=== PATIENT | male | born 1975 | race Caucasian/White ===

== ENCOUNTER 2017-08-02 09:40 | Emergency (ER) | payer OTHER, SELFPAY ==
[2017-08-02 10:09] VITALS: BP 134/81; PULSE 82; RESP 20; TEMP 36.7; O2SAT 99; BMI 25.7
--- NOTE | 2017-08-02 10:15 | XR_ITS ---
XR chest 2V HISTORY: ITS.REASON: HAVING SURGERY, REQUIRES CHEST XRAY ORDERING PHYSICIAN: ZAINAB Rome PATIENT AGE: 42 years COMPARISON: None available FINDINGS: The cardiomediastinal silhouette and pulmonary vascularity are within normal limits. The lungs are clear without infiltrates, suspicious nodules, or pleural effusions. In the infrahilar region on the lateral view there is a nodular opacity which measures 2.6 x 1.8 cm. While this could be due to summation artifact, pulmonary nodule cannot be excluded therefore, CT chest recommended with contrast. No acute bony abnormalities. IMPRESSION: Possible infrahilar nodule on the lateral view. Suggest CT chest with contrast for further evaluation
[2017-08-02 10:45] LABS: Hematocrit 48.7 % (42.0-52.0); Hemoglobin 16.5 g/dL (14.1-18.0); Mean Corpuscular Hemoglobin 29.5 pg (27.0-31.2); Mean Corpuscular Volume 86.8 fl (80-94); Mean Platelet Volume 7.5 fl (7.4-10.4); Platelet Count 243 K/mm3 (142-424); Red Cell Distribution Width 12.6 % (11.5-17.5); White Blood Count 5.1 K/mm3 (4.8-10.8)
[2017-08-02 10:46] LABS: Alanine Aminotransferase 48 U/L (12-78); Albumin Level 4.1 gm/dL (3.4-5.0); Alkaline Phosphatase 61 U/L (46-116); Anion Gap 12.4 mEq/L (5-15); Aspartate Amino Transferase 22 U/L (15-37); Basophils % 0.4 % (0.1-2.0); Bilirubin,Total 0.8 mg/dL (0.2-1.0); Blood Urea Nitrogen 15 mg/dL (7-18); Calcium 9.2 mg/dL (8.5-10.1); Carbon Dioxide 28 mmol/L (21.0-32.0); Chloride 104 mmol/L (98-107); Creatinine Clearance Estimated 120 mL/min (0-300); Creatinine,Serum 0.99 mg/dL (0.70-1.30); Eosinophils % 1.6 % (0.1-12.0); Estimated Glomerular Filt Rate 83 ml/min (>60); GFR (African American) 101 ML/MIN (>60); Globulin 4.1 gm/dl (1.3-3.2); Glucose 97 mg/dL (74-106); Lymphocytes # 1.5 K/mm3 (0.7-4.5); Lymphocytes % 32.3 K/mm3 (10-50); Neutrophils # 2.8 K/mm3 (1.8-7.8); Neutrophils % 54.7 % (37.0-80.0); Potassium 4.4 mmoL/L (3.5-5.1); Sodium 140 mmol/L (136-145); Total Protein,Serum 8.2 gm/dL (6.4-8.2)
[2017-08-02 10:47] LABS: Eosinophils # 0.1 K/mm3 (0.0-0.4); Monocytes # 0.6 K/mm3 (0.1-1.0)
--- NOTE | 2017-08-02 10:47 | HMH.EDUTC ---
[facility] [place] Disposition Clinical Impression: Pre-op testing, Hemophilia Right knee pain Qualifiers: Chronicity: chronic Qualified Code(s): M25.561 - Pain in right knee; G89.29 - Other chronic pain Disposition: Home, Self-Care Condition on Discharge: Good Additional Instructions: CBC, CMP, PT/INR and CXR, EKG will be sent to orthopedist. Time of Disposition: 10:50 Medical Decision Making - Medical Records Medical records reviewed: Yes: I reviewed the patient's medical records. Vital Signs: 08/02/17 10:09 Temperature 98.1 F Temperature Source Oral Pulse Rate [Right Brachial] 82 Respiratory Rate 20 Blood Pressure [Right Arm] 134/81 Blood Pressure Mean [Right Arm] 98 Blood Pressure Source [Right Arm] Automatic Cuff Blood Pressure Position [Right Arm] Sitting 02 Sat by Pulse Oximetry 99 Oxygen Delivery Method Room Air Orders (Tests/Meds): ORDERS Category Date Time Status Chest XR 2 view (NOT portable) [XR chest 2V] Stat Exams 08/02/17 10:15 Taken Complete Blood Count Auto Diff Stat Lab 08/02/17 10:25 Received Comprehensive Metabolic Panel Stat Lab 08/02/17 10:25 Received PT INR [Prothrombin Time INR] Stat Lab 08/02/17 10:25 Received ECG Request by /Patti Stat Y 08/02/17 10:15 Stop Benjamin - Tanvir Inquiry Pt receiving controlled substance: No [facility] [place] HPI - General Stated complaint: Pre Op Testing Time Seen by Provider: 08/02/17 10:15 Mode of Arrival: Ambulatory Source of Information: Patient Limitations: No Limitations Description of Symptoms (Recalled from Triage Doc. by RN): PT IS REQUESTING A CHEST XRAY, EKG, CBC, AND CHEM 14 HEENT Symptoms (Recalled from RN notes): No Resp Symptoms (Recalled from RN notes): No Skin Symptoms (Recalled from RN notes): No MS Symptoms (Recalled from RN notes): No Functional Status (Recalled from RN notes): N/A - History of Present Illness Provider Complaint: Patient needs pre op testing for right knee replacement. Leaves today to go to [place] for surgery 08/05/2017. Recently moved here but is returning to [place] for the surgery because his physician is familiar with him. Has history of hemophilia. - Related Data Allergies Allergy/AdvReac Type Severity Reaction Status Date / Time No Known Allergies Allergy Verified 08/02/17 10:14 - Worker's Comp Is this a Worker's Comp case?: No H History I have reviewed the patient's past medical history: Yes Medical History: Denies:: Cancer, Diabetes Mellitus Type 1, Diabetes Mellitus Type 2, MRSA Comment: Hemophilia Amputation: No Fractures: No - *Social History Smoking Status: Never smoker Alcohol Intake: never - Psychiatric History Expresses thoughts of harming self/others: None Suicide Plan Description: No Plan ROS Obtained: Yes All systems reviewed & no additional complaints - Musculoskeletal Musculoskeletal: Reports joint pain Physical Exam - General General appearance: alert, in no apparent distress - Head Head exam: atraumatic, normocephalic, normal inspection - Eye Eye exam: Present: normal appearance, PERRL, EOMI - ENT ENT exam: Present: normal exam, normal oropharynx, mucous membranes moist, TM's normal bilaterally, normal external ear exam - Neck Neck exam: Present: normal inspection, full ROM, trachea midline. Absent: meningismus, lymphadenopathy - Chest Chest inspection: Present: normal inspection, symmetric chest wall rise. Absent: tenderness - Respiratory Respiratory exam: Present: normal lung sounds bilaterally. Absent: respiratory distress - Cardiovascular Cardiovascular exam: Present: regular rate, normal rhythm. Absent: JVD - Abdominal Exam Abdominal exam: Present: soft, normal bowel sounds. Absent: distention, tenderness, guarding - Extremities Exam Extremities exam: Present: normal inspection, tenderness, normal capillary refill, joint swelling. Absent: calf tenderness - Back Exam Back exam: Present: normal inspection. Absent: tenderness
[2017-08-02 10:48] LABS: INR 0.94 (0.9-1.1); Prothrombin Time 10.2 seconds (9.4-11.8)
--- NOTE | 2017-08-02 10:50 | ED_ITS ---
[facility] [place] Disposition Clinical Impression: Pre-op testing, Hemophilia Right knee pain Qualifiers: Chronicity: chronic Qualified Code(s): M25.561 - Pain in right knee; G89.29 - Other chronic pain Disposition: Home, Self-Care Condition on Discharge: Good Additional Instructions: CBC, CMP, PT/INR and CXR, EKG will be sent to orthopedist. Time of Disposition: 10:50 Medical Decision Making - Medical Records Medical records reviewed: Yes: I reviewed the patient's medical records. Vital Signs: 08/02/17 10:09 Temperature 98.1 F Temperature Source Oral Pulse Rate [Right Brachial] 82 Respiratory Rate 20 Blood Pressure [Right Arm] 134/81 Blood Pressure Mean [Right Arm] 98 Blood Pressure Source [Right Arm] Automatic Cuff Blood Pressure Position [Right Arm] Sitting 02 Sat by Pulse Oximetry 99 Oxygen Delivery Method Room Air Orders (Tests/Meds): ORDERS Category Date Time Status Chest XR 2 view (NOT portable) [XR chest 2V] Stat Exams 08/02/17 10:15 Taken Complete Blood Count Auto Diff Stat Lab 08/02/17 10:25 Received Comprehensive Metabolic Panel Stat Lab 08/02/17 10:25 Received PT INR [Prothrombin Time INR] Stat Lab 08/02/17 10:25 Received ECG Request by /Patti Stat Y 08/02/17 10:15 Stop Benjamin - Tanvir Inquiry Pt receiving controlled substance: No [facility] [place] HPI - General Stated complaint: Pre Op Testing Time Seen by Provider: 08/02/17 10:15 Mode of Arrival: Ambulatory Source of Information: Patient Limitations: No Limitations Description of Symptoms (Recalled from Triage Doc. by RN): PT IS REQUESTING A CHEST XRAY, EKG, CBC, AND CHEM 14 HEENT Symptoms (Recalled from RN notes): No Resp Symptoms (Recalled from RN notes): No Skin Symptoms (Recalled from RN notes): No MS Symptoms (Recalled from RN notes): No Functional Status (Recalled from RN notes): N/A - History of Present Illness Provider Complaint: Patient needs pre op testing for right knee replacement. Leaves today to go to [place] for surgery 08/05/2017. Recently moved here but is returning to [place] for the surgery because his physician is familiar with him. Has history of hemophilia. - Related Data Allergies Allergy/AdvReac Type Severity Reaction Status Date / Time No Known Allergies Allergy Verified 08/02/17 10:14 - Worker's Comp Is this a Worker's Comp case?: No H History I have reviewed the patient's past medical history: Yes Medical History: Denies:: Cancer, Diabetes Mellitus Type 1, Diabetes Mellitus Type 2, MRSA Comment: Hemophilia Amputation: No Fractures: No - *Social History Smoking Status: Never smoker Alcohol Intake: never - Psychiatric History Expresses thoughts of harming self/others: None Suicide Plan Description: No Plan ROS Obtained: Yes All systems reviewed & no additional complaints - Musculoskeletal Musculoskeletal: Reports joint pain Physical Exam - General General appearance: alert, in no apparent distress - Head Head exam: atraumatic, normocephalic, normal inspection - Eye Eye exam: Present: normal appearance, PERRL, EOMI - ENT ENT exam: Present: normal exam, normal oropharynx, mucous membranes moist, TM's normal bilaterally, normal external ear exam - Neck Neck exam: Present: normal inspection, full ROM, trachea midline. Absent: meningis
[2017-08-02 10:59] VITALS: BP 134/81; PULSE 82; RESP 20; TEMP 36.7
== END 2017-08-02 10:59 | disposition home or self-care (01) ==
PROVIDERS: Emergency Provider Physician Assistant
DX: Z01.818 Encounter for other preprocedural examination (principal); M25.561 Pain in right knee; D66 Hereditary factor VIII deficiency; G89.29 Other chronic pain
CPT/HCPCS: 36415; 71046; 80053; 85025; 85610; 93005; 93041; 99203

== ENCOUNTER → 2017-11-21 15:24 | Outpatient (CLI) | payer BC, SELFPAY ==
--- NOTE | 2017-11-21 15:26 | XR_ITS ---
XR foot wt bearing LT 3V HISTORY: ITS.REASON: Foot and Ankle Pain ORDERING PHYSICIAN: Lupe Gibbs DPM PATIENT AGE: 42 years COMPARISON: None FINDINGS: No fracture or dislocation. No lytic or blastic change. There is normal mineralization.. The joint spaces are well-preserved. No significant degenerative/arthritic changes. No erosive changes evident. IMPRESSION: Negative, no acute finding
--- NOTE | 2017-11-21 15:26 | XR_ITS ---
XR ankle wt bearing LT min 3V HISTORY: ITS.REASON: pain ORDERING PHYSICIAN: Lupe Gibbs DPM PATIENT AGE: 42 years Comparison: None FINDINGS: No fracture or dislocation. No lytic or blastic change. There is normal mineralization.. The joint spaces are well-preserved. No significant degenerative/arthritic changes. No erosive changes evident. Unremarkable. Talar dome IMPRESSION: Negative ankle, no acute finding
--- NOTE | 2017-11-21 15:26 | XR_ITS ---
XR foot wt bearing RT 3V HISTORY: ITS.REASON: Foot and Ankle Pain ORDERING PHYSICIAN: Lupe Gibbs DPM PATIENT AGE: 42 years COMPARISON: None FINDINGS: No fracture or dislocation. No lytic or blastic change. There is normal mineralization.. The joint spaces are well-preserved. No significant degenerative/arthritic changes. No erosive changes evident. IMPRESSION: Negative, no acute finding
--- NOTE | 2017-11-21 15:26 | XR_ITS ---
XR ankle wt bearing RT min 3V HISTORY: ITS.REASON: pain ORDERING PHYSICIAN: Lupe Gibbs DPM PATIENT AGE: 42 years Comparison: None FINDINGS: No fracture or dislocation. No lytic or blastic change. There is normal mineralization.. The joint spaces are well-preserved. No significant degenerative/arthritic changes. No erosive changes evident. The talar dome has an unremarkable appearance IMPRESSION: Negative ankle, no acute finding
== END ==
PROVIDERS: Visit Provider Podiatrist
DX: M79.671 Pain in right foot (principal); M79.672 Pain in left foot; M25.572 Pain in left ankle and joints of left foot; M25.571 Pain in right ankle and joints of right foot
CPT/HCPCS: 73610; 73630

== ENCOUNTER 2017-12-19 14:00 | Outpatient (RCR) | payer BC, SELFPAY | END 2017-12-19 14:01 | disposition home or self-care (01) | LOC: PT 14:00 | DX: M24.661 Ankylosis, right knee (principal); Z96.651 Presence of right artificial knee joint | CPT/HCPCS: 97010; 97014; 97016; 97110; 97140; 97164; G0283 ==

== ENCOUNTER → 2018-01-29 15:12 | Outpatient (CLI) | payer BC, SELFPAY ==
[2018-01-29 15:31] LABS: Basophils % 0.3 % (0.1-2.0); Eosinophils # 0.2 K/mm3 (0.0-0.4); Eosinophils % 3.7 % (0.1-12.0); Hematocrit 47.1 % (42.0-52.0); Hemoglobin 16.1 g/dL (14.1-18.0); Lymphocytes # 1.4 K/mm3 (0.7-4.5); Lymphocytes % 23.9 K/mm3 (10-50); Mean Corpuscular HGB Conc 34.2 g/dL (31.8-35.4); Mean Corpuscular Hemoglobin 29.5 pg (27.0-31.2); Mean Corpuscular Volume 86.3 fl (80-94); Mean Platelet Volume 6.5 fl (7.4-10.4); Monocytes # 0.4 K/mm3 (0.1-1.0); Monocytes % 6.2 % (1.7-9.3); Neutrophils # 3.9 K/mm3 (1.8-7.8); Neutrophils % 65.8 % (37.0-80.0); Platelet Count 275 K/mm3 (142-424); Red Blood Count 5.46 M/mm3 (4.60-6.20); White Blood Count 5.9 K/mm3 (4.8-10.8)
[2018-01-29 18:41] LABS: Alanine Aminotransferase 39 U/L (12-78); Albumin Level 4.2 gm/dL (3.4-5.0); Albumin/Globulin Ratio 1.1 (1.1-1.8); Alkaline Phosphatase 63 U/L (46-116); Anion Gap 11.6 mEq/L (5-15); Aspartate Amino Transferase 18 U/L (15-37); Bilirubin,Total 0.5 mg/dL (0.2-1.0); Blood Urea Nitrogen 13 mg/dL (7-18); Calcium 9.1 mg/dL (8.5-10.1); Carbon Dioxide 32 mmol/L (21.0-32.0); Chloride 104 mmol/L (98-107); Creatinine,Serum 1.03 mg/dL (0.70-1.30); Estimated Glomerular Filt Rate 80 ml/min (>60); GFR (African American) 96 ML/MIN (>60); Globulin 3.8 gm/dl (1.3-3.2); Glucose 96 mg/dL (74-106); Potassium 4.6 mmoL/L (3.5-5.1); Sodium 143 mmol/L (136-145)
== END ==
PROVIDERS: Visit Provider Internal Medicine Gastroenterology
DX: B18.2 Chronic viral hepatitis C (principal)
CPT/HCPCS: 36415; 80053; 85025; 87522

== ENCOUNTER → 2019-06-17 07:42 | Outpatient (CLI) | payer BC, SELFPAY ==
--- NOTE | 2019-06-17 07:44 | US_ITS ---
PROCEDURE: US ABDOMEN LIMITED CLINICAL INDICATION: RUQ PAIN COMPARISON: No exams were available for comparison FINDINGS: PANCREAS: Unremarkable. No obvious mass or abnormal fluid collection. No ductal dilatation LIVER: No focal liver lesions demonstrated. Homogeneous echogenicity. No intrahepatic biliary ductal dilatation evident. There is appropriate direction of blood flow within a non dilated portal vein RIGHT KIDNEY: Unremarkable. Normal size and echogenicity. No hydronephrosis GALLBLADDER: There is layering of numerous small echogenic shadowing foci along the gallbladder. There is no gallbladder wall thickening or pericholecystic fluid. Common bile duct is normal measuring 3.6 millimeters. IMPRESSION: Uncomplicated cholelithiasis. Dictated by: Harry Nassar 06/17/2019 11:57 Electronically signed by Harry Nassar in [place] 06/17/2019 11:57
== END ==
PROVIDERS: PCP Nurse Practitioner Family; Visit Provider Internal Medicine Adolescent Medicine
DX: R10.11 Right upper quadrant pain (principal)
CPT/HCPCS: 76705

== ENCOUNTER → 2020-06-22 11:13 | Outpatient (CLI) | payer BC, SELFPAY ==
[2020-06-22 11:54] LABS: Basophils % 0.4 % (0.1-2.0); Eosinophils # 0.1 K/mm3 (0.0-0.4); Eosinophils % 1.7 % (0.1-12.0); Hematocrit 53.2 % (42.0-52.0); Hemoglobin 17.8 g/dL (14.1-18.0); Lymphocytes # 1.5 K/mm3 (0.7-4.5); Lymphocytes % 31.6 % (10-50); Mean Corpuscular HGB Conc 33.4 g/dL (31.8-35.4); Mean Corpuscular Hemoglobin 29.5 pg (27.0-31.2); Mean Corpuscular Volume 88.3 fl (80-94); Mean Platelet Volume 7.3 fl (7.4-10.4); Monocytes # 0.5 K/mm3 (0.1-1.0); Monocytes % 10.6 % (1.7-9.3); Neutrophils # 2.6 K/mm3 (1.8-7.8); Neutrophils % 55.6 % (37.0-80.0); Platelet Count 289 K/mm3 (142-424); Red Blood Count 6.02 M/mm3 (4.60-6.20); Red Cell Distribution Width 13.4 % (11.5-17.5); White Blood Count 4.7 K/mm3 (4.8-10.8)
[2020-06-22 12:48] LABS: Chloride 103 mmol/L (98-107); Potassium 4.8 mmoL/L (3.5-5.1); Sodium 139 mmol/L (136-145)
[2020-06-22 12:50] LABS: Alanine Aminotransferase 43 U/L (12-78); Aspartate Amino Transferase 37 U/L (17-59); Blood Urea Nitrogen 12 mg/dl (9-20); Estimated Glomerular Filt Rate 81 ml/min (>60); GFR (African American) 98 ML/MIN (>60)
[2020-06-22 12:51] LABS: Albumin Level 4.7 g/dl (3.5-5.0); Albumin/Globulin Ratio 1.3 (1.1-1.8); Alkaline Phosphatase 53 U/L (38-126); Anion Gap 11.8 mEq/L (5-15); Bilirubin,Total 0.8 mg/dl (0.2-1.3); Calcium 9.8 mg/dl (8.4-10.2); Carbon Dioxide 29 mmol/L (22.0-30.0); Globulin 3.7 g/dL (1.3-3.2); Glucose 94 mg/dl (74-100); Iron 118 ug/dL (49-181); Total Protein,Serum 8.4 g/dl (6.3-8.2)
[2020-06-22 13:00] LABS: Total Iron Binding Capacity 354 ug/dL (261-462)
[2020-06-22 13:26] LABS: Ferritin 65.4 ng/ml (17.9-464)
[2020-06-27 18:12] LABS: Factor VIII Activity <1 % (56-140)
[2020-07-01 01:56] LABS: Miscellaneous Test SEE LABCORP REPORT
== END ==
PROVIDERS: Visit Provider Internal Medicine Hematology & Oncology
DX: D66 Hereditary factor VIII deficiency (principal)
CPT/HCPCS: 80053; 82728; 83540; 83550; 85025; 85240; 87522

== ENCOUNTER → 2021-04-18 11:28 | Outpatient (CLI) | payer BC, SELFPAY ==
[2021-04-18 12:33] LABS: Coronavirus 19 IgG Antibody Negative (Negative); Coronavirus 19 IgM Antibody Negative (Negative)
== END ==
PROVIDERS: Visit Provider Family Medicine
DX: Z20.822 Contact with and (suspected) exposure to COVID-19 (principal)
CPT/HCPCS: 36415; 86328

== ENCOUNTER 2022-02-04 14:54 | Emergency (ER) | payer BC, SELFPAY ==
[2022-02-04 15:10] VITALS: BP 138/90; PULSE 83; RESP 18; TEMP 36.6; O2SAT 98; BMI 26.4
[2022-02-04 15:16] VITALS: BP 138/90; PULSE 83; RESP 18; TEMP 36.6; O2SAT 98
--- NOTE | 2022-02-04 15:21 | HMH.EDUTC ---
[facility] [place] Disposition Clinical Impression: Encounter for laboratory testing for COVID-19 virus Disposition: Home, Self-Care Condition on Discharge: Good Instructions: DI for Viral Syndrome, DI for COVID-19 (Suspected or Confirmed ), Preventing the Spread of Coronavirus Discharge Instructions Additional Instructions: *Monitor Temp, Over the counter Motrin or Tylenol as directed/as needed Tylenol every 4 hours and Motrin every 6 hours (as long as your family doctor has told you that you can take it) for fever or pain. and straight to ER if unable to lower temp less than 101.0 after medication given *Warm salt water gargles may help to soothe the throat *Throat Lozenges *Warm fluids like tea with honey may help to soothe the throat *Sleep elevated *Humidifier/Vaporizer Follow up IMMEDIATELY for new or worsening symptoms or no Noticeable improvement over the next 48-72 hours. 911 for difficulty breathing or swallowing You were tested for today for COVID19 your test result should be back in the next 24-48 hours, you check your results on the [facility] My Health Portal Make sure to take your Vitamins Vit. C Vit D and Zinc if you can take them Referrals: Mario Arzate MD [Primary Care Provider] - As needed Forms: Work/School Release Time of Disposition: 15:27 Medical Decision Making - Tanvir Inquiry Pt receiving controlled substance: No Tanvir was queried for this patient: No Vital Signs: 02/04/22 15:10 02/04/22 15:16 Temperature 97.9 F 97.9 F Temperature Source Oral Pulse Rate 83 Pulse Rate [Right Brachial] 83 Respiratory Rate 18 18 Blood Pressure 138/90 Blood Pressure [Right Arm] 138/90 Blood Pressure Mean [Right Arm] 106 Blood Pressure Source [Right Arm] Automatic Cuff Blood Pressure Position [Right Arm] Sitting 02 Sat by Pulse Oximetry 98 Oxygen Delivery Method Room Air Orders (Tests/Meds): ORDERS Category Date Time Status Covid-19 Nasal PCR ([facility]) Routine Lab 02/04/22 15:06 Ordered [facility] [place] HPI - General Stated complaint: wants covid test Time Seen by Provider: 02/04/22 15:22 Mode of Arrival: Ambulatory Source of Information: Patient Limitations: No Limitations Description of Symptoms (Recalled from Triage Doc. by RN): PATIENT C/O FEVER, BODY ACHES, AND HEADACHE X 4 DAYS HEENT Symptoms (Recalled from RN notes): Yes Resp Symptoms (Recalled from RN notes): No Skin Symptoms (Recalled from RN notes): No MS Symptoms (Recalled from RN notes): No Functional Status (Recalled from RN notes): WNL - History of Present Illness Provider Complaint: Patient states that he hasnt felt well for the 4 days States that he has been having headache, bodyaches and chills States that family member tested positive with home test and he thinks he may have had it too now - Related Data Home Medications Medication Instructions Recorded Confirmed antihemophil FVIII,full length IV 28 Days #[id number] 11/26/17 3,000 (+/-) unit IV solution tramadol 50 mg tablet PO 10 Days #40 11/26/17 Allergies Allergy/AdvReac Type Severity Reaction Status Date / Time No Known Allergies Allergy Verified 01/06/18 18:26 - Worker's Comp Is this a Worker's Comp case?: No [facility] History - Hepatitis A Screen Attestation statement:: This patient has been screened for Hepatitis A risk factors. I have reviewed the patient's past medical history: Yes Medical History: Denies:: Cancer, Diabetes Mellitus Type 1, Diabetes Mellitus Type 2, MRSA Comment: Hemophilia Laterality Cases: Right: Arthroscopy Knee Amputation: No Fractures: No - Social History Smoking Status: Never smoker # Packs/Day (cigarettes): 0 #Yrs smoked (if former smoker): 0 Alcohol Intake: never Alcohol Intake Frequency:: holidays/special occasions only Occupational Status: other Family Hx:: No significant family history, Non-contributory ROS Obtained: Yes All systems reviewed & no additional complaints, Yes Systems reviewed as appropriate & n
== END 2022-02-04 15:35 | disposition home or self-care (01) ==
PROVIDERS: Emergency Provider Nurse Practitioner; PCP Family Medicine
DX: R51.9 Headache, unspecified (principal); Z20.822 Contact with and (suspected) exposure to COVID-19
CPT/HCPCS: 99212; C9803; G0463; U0003; U0005

== ENCOUNTER → 2022-10-30 08:43 | Outpatient (CLI) | payer BC, SELFPAY ==
--- NOTE | 2022-10-30 08:54 | US_ITS ---
FINAL REPORT CLINICAL HISTORY: H/O HEPATITIS C COMPARISON: None FINDINGS: Sonographic images of the right upper quadrant were obtained. The pancreas is partially obscured.The liver has an unremarkable appearance. There are multiple gallstones measuring less than 1 cm without evidence of acute gallbladder disease. There is no evidence of biliary ductal dilatation.The common duct measures 4mm. Limited images of the right kidney are unremarkable. IMPRESSION: No evidence of liver mass or cirrhosis. Uncomplicated cholelithiasis. Reviewed, Interpreted and Dictated by Romulo Tillman MD Transcribed by Kristina Solis Authenticated and [facility]
[2022-10-30 09:04] LABS: Basophils % 0.5 % (0.1-2.0); Eosinophils # 0.1 K/mm3 (0.0-0.4); Eosinophils % 2.3 % (0.1-12.0); Hematocrit 40.5 % (42.0-52.0); Lymphocytes # 2.2 K/mm3 (0.7-4.5); Lymphocytes % 36.6 % (10-50); Mean Corpuscular Volume 75.1 fl (80-94); Mean Platelet Volume 6.9 fl (7.4-10.4); Monocytes # 0.6 K/mm3 (0.1-1.0); Monocytes % 9.8 % (1.7-9.3); Neutrophils % 50.8 % (37.0-80.0); Platelet Count 372 K/mm3 (142-424); Red Cell Distribution Width 14.4 % (11.5-17.5); White Blood Count 5.9 K/mm3 (4.8-10.8)
[2022-10-30 09:24] LABS: INR 0.95 (0.9-1.1); Prothrombin Time 10.3 seconds (10.1-12.5)
[2022-10-30 09:37] LABS: Alanine Aminotransferase 45 U/L (12-78); Albumin Level 4.4 g/dl (3.5-5.0); Albumin/Globulin Ratio 1.3 (1.1-1.8); Alkaline Phosphatase 60 U/L (38-126); Anion Gap 17.5 mEq/L (5-15); Aspartate Amino Transferase 46 U/L (17-59); Bilirubin,Total 0.3 mg/dl (0.2-1.3); Blood Urea Nitrogen 14 mg/dl (9-20); Carbon Dioxide 28 mmol/L (22.0-30.0); Chloride 99 mmol/L (98-107); Estimated Glomerular Filt Rate 80 ml/min (>60); GFR (African American) 97 ML/MIN (>60); Globulin 3.4 g/dL (1.3-3.2); Glucose 84 mg/dl (74-100); Potassium 4.5 mmoL/L (3.5-5.1); Sodium 140 mmol/L (136-145); Total Protein,Serum 7.8 g/dl (6.3-8.2)
== END ==
PROVIDERS: PCP Family Medicine; Visit Provider Physician Assistant
DX: Z86.19 Personal history of other infectious and parasitic diseases (principal)
CPT/HCPCS: 36415; 76705; 80053; 85025; 85610; 87522

== ENCOUNTER 2024-04-28 13:07 | Outpatient (POV) | payer BC, SELFPAY ==
--- NOTE | 2024-04-28 13:51 | A.OFFVIS_ITS ---
HPI Data of Consult Patient: new to practice Consult date: 04/28/24 Requesting Physician: Kate Hobbs APRN Primary Care Provider: Mario Arzate MD Consult Narrative Reason for consult: Right knee pain, bilateral ankle pain History of present illness: Mr. Hector is a 48 year old male who presents today as a new patient. He is a referral from Dr. stratton out of [facility] in [facility]. Today he rates his pain an 8 out of 10. Patient states he has chronic pain in his right knee as well as his bilateral ankles. Patient states this been going on for at least 1520 years. He does state the knee pain could be more related to a replacement 8 years ago. Patient does state that his pain is an overall dull achy, throbbing sensation with some numbness and tingling depending on the day and what he is doing. He will also state that he has sharp shooting pains from time to time. Patient does have severe hemophilia and is seeing [facility] for this. Patient states that it does cause chronic pain in multiple areas and that he does also have arthritis. He states that initially in the mornings he is very stiff and it is painful to get up and start moving however over time it does seem like it eases down and is manageable. Patient does use 2 tramadol a day to help keep the pain more dull and keep him active however he states it only does so much. He has tried oral medications along with heat and ice and topicals with minimal relief. Patient has also been seei ng Dr. Gibbs for his bilateral ankle pain and states that they have done multiple injections with minimal relief. He states that they did also talk about fusing his ankles however she was not recommending it because she really did not think it would help. Patient is interested in any help we may be able to provide. Patient has tried and failed conservative therapy including physical therapy. Patient Tanvir has been reviewed and is appropriate. CC: Kate Hobbs APRN [facility] Disclaimer: The information contained in this section may have been updated after the patient was seen, as this information can be updated by other users. Medical History (Updated 04/28/24 @ 14:31 by Kate Hobbs APRN) History of hepatitis C virus infection Hemophilia Surgical History (Updated 04/15/22 @ 11:04 by Meryl Romero) History of right knee surgery Social History (Updated 04/15/22 @ 11:05 by Meryl Romero) Smoking Status: Never smoker alcohol intake: never current occupational status: other Travel in the last 8 weeks: Inside the [place] Review of Systems Review of Systems Review of systems:: pertinent systems reviewed and negative unless documented below Review of systems (narrative): Review of Systems: General: No recent weight changes, no fever, no sleep disturbances Respiratory: No cough, no shortness of air, no recurring pulmonary infections Cardiovascular/peripheral vascular: No chest pain, no palpitations, no edema, no shortness of breath Gastrointestinal: No new onset incontinence, normal bowel movements reported Genitourinary: No new onset incontinence Musculoskeletal: Right knee pain, bilateral ankle pain Psychiatric: [Normal mood/affect] Neurological: [Denies weakness in extremities], [denies balance issues] Meds Home Medications and Allergies Home Medications ?Medication ?Instructions ?Recorded ?Confirmed ?Type antihemophil FVIII,full length IV 28 days ##[id number] 11/26/17 04/15/22 History 3,000 (+/-) unit IV solution tramadol 50 mg tablet PO 10 days ##40 11/26/17 04/15/22 History New Prescriptions to Start Prescriptions: Allergies Allergy/AdvReac Type Severity Reaction Status Date / Time No Known Allergies Allergy Verified 04/15/22 11:02 Objective Narrative: Physical Exam: General: Alert and oriented x3, no acute distress, pleasant and cooperative Lungs: Respirations even and unlabored, symmetrical chest expansion Eyes: PERRL Musculoskeletal: Flexion and extension of bilateral ankles somewhat guarded secondary to pain Neurological: Speech clear, no gross sensory deficit Assessment and Plan *Assessment and plan (1) 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 I did discuss with the patient due to his conservative therapy that he has tried and failed including injection therapy that he may benefit from a spinal cord stimulator trial. Risk and benefits and educational handouts were given at today's visit. 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 He was counseled that we would have to order a psychological evaluation and wait to confirm that he was deemed an appropriate candidate for this device. He acknowledges understanding. Patient will be ordered a compounded cream. Patient will return to clinic in 2 weeks for reevaluation of symptoms and plan of care. Patient has been instructed to contact the clinic with any concerns before the next appointment. Dr. Chiu has reviewed this note and agrees with this plan of care. This note was dictated using voice recognition software and make contain errors or omissions. All injections are used with Lidocaine or Bupivacaine and Depo Medrol.
[2024-04-28 16:03] VITALS: BP 157/94; PULSE 101; RESP 18; O2SAT 98; BMI 27.1
== END 2024-04-28 23:59 | disposition home or self-care (01) ==
LOC: SC.PAIN 13:08
PROVIDERS: PCP Family Medicine; Visit Provider Nurse Practitioner Family
DX: D66 Hereditary factor VIII deficiency (principal); M25.561 Pain in right knee; G89.29 Other chronic pain; M25.571 Pain in right ankle and joints of right foot; M25.572 Pain in left ankle and joints of left foot; Z96.651 Presence of right artificial knee joint
CPT/HCPCS: 99202; G0463

== ENCOUNTER 2024-05-06 15:55 | Day surgery (SDC) | payer BC, SELFPAY ==
[2024-05-06 16:14] VITALS: BP 125/80; PULSE 125; RESP 16; TEMP 36.4; O2SAT 98; BMI 28.3
--- NOTE | 2024-05-06 16:27 | EXP.HP ---
History of Present Illness *Admission Date: 05/06/24 *Reason for visit:: Hematemesis *History of present illness: Mr. 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 Is not vomiting but regurgitation of blood. The examination is deemed medically necessary for EGD. Hemoglobin in the office was stable. The patient has been seen, interviewed and examined prior to the procedure by both myself and the anesthesia provider. [facility] Disclaimer: The information contained in this section may have been updated after the patient was seen, as this information can be updated by other users. Medical History (Updated 05/06/24 @ 16:29 by Dajuan Nichole II, MD) History of hepatitis C virus infection Hemophilia Surgical History History of right knee surgery Family History (Updated 05/06/24 @ 16:10 by Ivon Cordero RN) Other No significant family history Social History (Updated 05/06/24 @ 16:15 by Ivon Cordero, NORMA) Smoking Status: Never smoker alcohol intake: never current occupational status: employed Travel in the last 8 weeks: None Other Medical History Have you received the Flu Vaccine for this season: No Have you received the Pneumonia Vaccine: No Review of Systems Review of Systems Review of systems (narrative): Negative *Cardiovascular Comments: Negative *Gastrointestinal Comments: Negative *Genitourinary Comments: Negative *Musculoskeletal Comments: Negative *Neurologic Comments: Negative Meds Home Medications and Allergies Home Medications ?Medication ?Instructions ?Recorded ?Confirmed ?Type antihemophil FVIII,full length 1 unit IV DIRECTED HEMOPHILIA 11/26/17 05/06/24 History 3,000 (+/-) unit IV solution 28 days ##42,432 tramadol 50 mg tablet 50 mg PO BID Pain 10 days ##40 11/26/17 05/06/24 History New Prescriptions to Start Prescriptions: Allergies Allergy/AdvReac Type Severity Reaction Status Date / Time No Known Allergies Allergy Verified 04/15/22 11:02 Exam Data for Last 24 hours Vital signs and Labs for Last 24 Hours: Temp Pulse Resp BP Pulse Ox O2 Del Method 97.5 F L 125 H 16 125/80 98 Room Air 05/06/24 16:14 05/06/24 16:14 05/06/24 16:14 05/06/24 16:14 05/06/24 16:14 05/06/24 16:14 I & O for Last 24 hours: Intake & Output 05/03/24 05/04/24 05/05/24 05/06/24 23:59 23:59 23:59 23:59 Weight 209 lb *Routine HEENT Exam Head: Present normocephalic Eye: Present EOMI and PERRL ENT: Present mucous membranes moist *Routine Neck Exam Neck: Present supple *Routine Respiratory Exam Respiratory: Present CTA bilaterally *Routine Cardiovascular Exam Cardiovascular: Present RRR *Routine Abdominal Exam Abdominal: Present soft and normoactive bowel sounds; Absent tenderness *Routine Rectal Exam Rectal:: deferred *Routine Genitalia Exam Genitalia:: deferred *Routine Extremities Exam Extremities: Absent cyanosis, clubbing or edema *Routine Skin Exam Skin: Present warm; Absent rash *Routine Neurological Exam Neurological: Present alert and oriented X3 Assessment and Plan *Assessment and plan (1) Hematemesis: Status: Acute Category: Medical Code(s): K92.0 - Hematemesis (2) Hemophilia C: Status: Acute Category: Medical Code(s): 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 Hematemesis is the preprocedural diagnosis. The patient will be anesthetized/sedated using MAC sedation. The patient has been seen and examined. Cardiac and lung assessment prior to the examination is stable. Proceed with planned EGD
--- NOTE | 2024-05-06 16:31 | P.PCN_ITS ---
[facility] Procedure Note Date: 05/06/24 Time: 16:39 Procedure Note:: Upper Endoscopy Procedure Report: Esophagogastroduodenoscopy with Endo Clip placement Endoscopost: Dajuan Nichole II, MD Referring Physician: Rashid Arzate MD Date of Procedure: May 06, 2024 Equipment: Olympus GIF 190 standard upper endoscope Sedation: MAC sedation Indications: Mr. Hector is a 48-year-old gentleman who has had regurgitation of blood/hematemesis twice. He has regurgitated clots, old blood and some bright red blood. He was seen by Dr. Arzate this afternoon in the office and his hemogram is stable. He does have a history of hemophilia C (factor XI deficiency). The patient does report dark stools and bright red blood. He did have a colonoscopy in [place] and states that he did not have any explanation of the bleeding but he did have internal hemorrhoids. He does have chronic iron deficiency but does not take oral iron replacement regularly. Procedure: Prior to the procedure, a history and physical exam was performed, and patient's medications and allergies were reviewed. The risks, benefits and alternatives of the sedation and procedure were discussed with the patient. All questions were answered and informed consent was obtained. The patient was brought to the procedure room. Patient identification and proposed procedure were verified by the physician and the nurse. The patient was placed in a left lateral decubitus position and the scope was passed under direct vision. Throughout the procedure, the patient's blood pressure, pulse, and oxygen saturations were monitored continuously. The upper GI endoscopy was accomplished without difficulty. The patient tolerated the procedure well. Findings: The scope was passed directly into the upper esophagus and advanced to the third portion of the duodenum. The post bulbar duodenum and duodenal bulb were normal with normal mucosa and conniventes. The scope was withdrawn through a normal duodenal bulb and pylorus into the stomach. The antrum was normal. There was a large amount of coffee ground in the body and fundus with some liquid and solid content making visualization of the fundus difficult. The lesser curvature and body of the stomach were normal. No biopsies were obtained. Upon retroflexion there was a small sliding 1 to 2 cm hiatal hernia. The scope was then withdrawn into the esophagus. There were 2 linear superficial ulcerations at the GE junction at 8:00 and 5 o'clock position. The 8 o'clock position had some active heme and oozing with clot over the bleeding. A single Endo Clip was placed over the area of bleeding. This was deemed reflux esophagitis. There were no esophageal varices and the remainder of the mid and proximal esophageal mucosa was normal. Impression: 1. Active oozing with linear superficial ulceration (extending less than 1 cm) at GE junction with erosive esophagitis status post Endo Clip placement Plan: The patient is bleeding from erosive/superficial ulcerative esophagitis and this was compounded by his factor XI deficiency. I would recommend TXA (transexamic acid) presently and PPI therapy. I will discuss the findings with the patient and family.
[2024-05-06 16:42] VITALS: BP 144/87; PULSE 100; RESP 17; TEMP 36.6; O2SAT 100
[2024-05-06 16:55] VITALS: BP 130/84; PULSE 100; RESP 17; O2SAT 100
[2024-05-06] MEDS: TRANEXAMIC ACID IV ×2 (16:58→16:59)
[2024-05-06] MEDS: SODIUM CHLORIDE 0.9% IV ×2 (16:58→16:59)
[2024-05-06 17:06] VITALS: BP 133/83; PULSE 96; RESP 16; O2SAT 100
== END 2024-05-06 17:16 | disposition home or self-care (01) ==
PROVIDERS: PCP Family Medicine; Visit Provider Internal Medicine Gastroenterology
PROC: 0DJ08ZZ Inspection of Upper Intestinal Tract, Via Natural or Artificial Opening Endoscopic (ICD-10-PCS; CPT 43235; principal; 2024-05-06 16:00)
DX: K92.0 Hematemesis (principal); D68.1 Hereditary factor XI deficiency; K22.10 Ulcer of esophagus without bleeding; K44.9 Diaphragmatic hernia without obstruction or gangrene; K21.01 Gastro-esophageal reflux disease with esophagitis, with bleeding
CPT/HCPCS: 43255

== ENCOUNTER 2024-05-14 11:33 | Outpatient (POV) | payer BC, SELFPAY ==
[2024-05-14 12:07] VITALS: BP 138/78; PULSE 90; RESP 18; O2SAT 100; BMI 27.8
--- NOTE | 2024-05-14 12:15 | A.OFFVIS_ITS ---
[facility] Disclaimer: The information contained in this section may have been updated after the patient was seen, as this information can be updated by other users. 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 Patient rates his pain today at 3 out of 10. He denies any new trauma or injury. He does state that he still continues to have the chronic right knee and bilateral ankle pain. Patient states that he did just get his compounded cream so we cannot tell whether or not if it will be helpful or not. Patient is prescribed tramadol from an outside provider. He does state that he did look over the spinal cord stimulator handout and does have additional questions regarding this device as well as did want to let his know that the FAA did get out of the spinal cord stimulator a greenlight as an option for him. Patient does have his doctor in [place] that treats him for his hemophilia. His Tanvir has been reviewed and is appropriate. Review of Systems: General: No recent weight changes, no fever, no sleep disturbances Respiratory: No cough, no shortness of air, no recurring pulmonary infections Cardiovascular/peripheral vascular: No chest pain, no palpitations, no edema, no shortness of breath Gastrointestinal: No new onset incontinence, normal bowel movements reported Genitourinary: No new onset incontinence Musculoskeletal: Knee pain, bilateral ankle pain Psychiatric: [Normal mood/affect] Neurological: [Denies weakness in extremities], [denies balance issues] Pain at rest (0-10 scale): 3 Objective Objective:: Physical Exam: General: Alert and oriented x3, no acute distress, pleasant and cooperative Lungs: Respirations even and unlabored, symmetrical chest expansion Eyes: PERRL Musculoskeletal: Flexion and extension of lumbar spine within normal limits Neurological: Speech clear, no gross sensory deficit Has patient had previous pain injection?: No Conservative treatment options previously tried: Home exercise plan Length of treatment: Longer than 12 weeks Meds Home Medications and Allergies Home Medications ?Medication ?Instructions ?Recorded ?Confirmed ?Type antihemophil FVIII,full length 1 unit IV DIRECTED HEMOPHILIA 11/26/17 05/14/24 History 3,000 (+/-) unit IV solution 28 days ##42,432 tramadol 50 mg tablet 50 mg PO BID Pain 10 days ##40 11/26/17 05/14/24 History omeprazole 40 mg capsule,delayed 40 mg PO DAILY #30 caps 05/06/24 05/14/24 Rx release New Prescriptions to Start Prescriptions: Allergies Allergy/AdvReac Type Severity Reaction Status Date / Time No Known Allergies Allergy Verified 04/15/22 11:02 Assessment and Plan *Assessment and plan (1) Hemophilia C: Status: Acute Category: Medical Code(s): 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 Patient is still very interested in this option. We will reach out to his provider in [place] to confirm that he has no contraindications to this procedure before ordering the psychological evaluation. Due to the upcoming holidays we will wait and follow-up with him in 6 weeks. Patient agrees with this plan of care. Patient has been instructed to contact the clinic with any concerns before the next appointment. Dr. Chiu has reviewed this note and agrees with this plan of care. This note was dictated using voice recognition software and make contain errors or omissions. All injections are used with Lidocaine or Bupivacaine and Depo Medrol.
== END 2024-05-14 23:59 | disposition home or self-care (01) ==
LOC: SC.PAIN 11:34
PROVIDERS: PCP Family Medicine; Visit Provider Nurse Practitioner Family
DX: D68.1 Hereditary factor XI deficiency (principal); M25.571 Pain in right ankle and joints of right foot; M25.572 Pain in left ankle and joints of left foot; M25.561 Pain in right knee; G89.29 Other chronic pain
CPT/HCPCS: 99212; G0463

== ENCOUNTER 2024-06-25 13:17 | Outpatient (POV) | payer BC, SELFPAY ==
--- NOTE | 2024-06-25 13:31 | A.OFFVIS_ITS ---
[facility] Disclaimer: The information contained in this section may have been updated after the patient was seen, as this information can be updated by other users. Medical History History of hepatitis C virus infection Hemophilia Surgical History History of right knee surgery Family History Other No significant family history Social History Smoking Status: Never smoker alcohol intake: never current occupational status: other Travel in the last 8 weeks: None Have you lived/traveled outside US in past 30 days?: No Contact w/someone who lives/traveled outside US past 30 days?: No Exposure to someone with infectious disease in past 14 days?: No Do you have a fever (greater than 100.4 F or 38 C)?: No Have you tested positive for COVID-19: No Exposed to someone with COVID-19 in past 14 days?: No Do you have a sore throat?: No Do you have a cough?: No Do you have any weakness?: No Do you have any diarrhea?: No Are you experiencing any unusual bleeding?: No Do you have any muscle aches/pain?: No Do you have any abdominal pain?: No Are you experiencing loss of taste or smell?: No PM Subjective & Objective Subjective Subjective:: Patient is a pleasant 48-year-old male who presents today for 2-week follow-up. Patient rates his pain today at 4 out of 10. He denies any new trauma or injury. He l continues to have the chronic right knee and bilateral ankle pain. Patient at our last visit did get [facility] approval to proceed forward with the spinal cord stimulator trial and does still have additional questions regarding this device. Patient is prescribed tramadol from an outside provider. Patient does have his doctor in [place] that treats him for his hemophilia. His Tanvir has been reviewed and is appropriate. Review of Systems: General: No recent weight changes, no fever, no sleep disturbances Respiratory: No cough, no shortness of air, no recurring pulmonary infections Cardiovascular/peripheral vascular: No chest pain, no palpitations, no edema, no shortness of breath Gastrointestinal: No new onset incontinence, normal bowel movements reported Genitourinary: No new onset incontinence Musculoskeletal: Knee pain, bilateral ankle pain Psychiatric: [Normal mood/affect] Neurological: [Denies weakness in extremities], [denies balance issues] Pain at rest (0-10 scale): 4 Objective Objective:: Physical Exam: General: Alert and oriented x3, no acute distress, pleasant and cooperative Lungs: Respirations even and unlabored, symmetrical chest expansion Eyes: PERRL Musculoskeletal: Flexion and extension of [lumbar [spine] somewhat guarded secondary to pain, [antalgic gait noted] Neurological: Speech clear, no gross sensory deficit Has patient had previous pain injection?: No Conservative treatment options previously tried: Home exercise plan Length of treatment: Longer than 12 weeks Meds Home Medications and Allergies Home Medications ?Medication ?Instructions ?Recorded ?Confirmed ?Type antihemophil FVIII,full length 1 unit IV DIRECTED HEMOPHILIA 11/26/17 06/25/24 History 3,000 (+/-) unit IV solution 28 days ##42,432 tramadol 50 mg tablet 50 mg PO BID Pain 10 days ##40 11/26/17 06/25/24 History omeprazole 40 mg capsule,delayed 40 mg PO DAILY #30 caps 05/06/24 06/25/24 Rx release New Prescriptions to Start Prescriptions: Allergies Allergy/AdvReac Type Severity Reaction Status Date / Time No Known Allergies Allergy Verified 06/01/24 13:04 Assessment and Plan *Assessment and plan (1) Bilateral ankle pain: Status: Acute Category: Medical Code(s): M25.571 - Pain in right ankle and joints of right foot; M25.572 - Pain in left ankle and joints of left foot (2) Right knee pain: Status: Acute Qualifiers: Chronicity: chronic Qualified Code(s): M25.561 - Pain in right knee; G 89.29 - Other chronic pain Category: Medical Code(s): M25.561 - Pain in right knee Plan I did discuss at length with the patient regarding the spinal cord stimulator trial. Patient was counseled that we did get a hold of his doctor in [place] that does treat him for his hemophilia and did get approval to proceed forward with this trial. I did discuss with the patient that the first step would be ordering the psychological evaluation and if he was deemed an appropriate jose date would proceed forward with the spinal cord stimulator trial. Patient does state that he would like a little bit more time to think on this device. I did certified alcohol and drug counselor him that he can call us and let us know over the phone if he would like to proceed forward with ordering the psychological evaluation. Patient agrees with this plan of care. We will wait to hear from him for his follow-up appointment. Patient has been instructed to contact the clinic with any concerns before the next appointment. Dr. Chiu has reviewed this note and agrees with this plan of care. This note was dictated using voice recognition software and make contain errors or omissions. All injections are used with Lidocaine, Bupivacaine and Depo Medrol. Occasionally urine drug screen is needed to verify patient's compliance with our office pain contract. This is ordered based off specific treatments related to chronic pain with the potential to abuse certain medications.
[2024-06-25 14:00] VITALS: BP 138/94; PULSE 82; RESP 16; TEMP 36.4; O2SAT 98; BMI 27.1
== END 2024-06-25 23:59 | disposition home or self-care (01) ==
LOC: SC.PAIN 13:18
PROVIDERS: PCP Family Medicine; Visit Provider Nurse Practitioner Family
DX: M25.571 Pain in right ankle and joints of right foot (principal); M25.572 Pain in left ankle and joints of left foot; M25.561 Pain in right knee; G89.29 Other chronic pain
CPT/HCPCS: 99212; G0463

== ENCOUNTER 2024-09-15 13:41 | Outpatient (POV) | payer BC, SELFPAY ==
[2024-09-15 14:03] VITALS: BP 136/92; PULSE 80; RESP 16; O2SAT 98; BMI 26.4
--- NOTE | 2024-09-15 15:16 | A.OFFVIS_ITS ---
[facility] Disclaimer: The information contained in this section may have been updated after the patient was seen, as this information can be updated by other users. Medical History History of hepatitis C virus infection Hemophilia Surgical History History of right knee surgery Family History Other No significant family history Social History Smoking Status: Never smoker alcohol intake: never current occupational status: other Travel in the last 8 weeks: None PM Subjective & Objective Subjective Subjective:: Patient is a pleasant 49-year-old male who presents today for follow-up. Today he rates his pain a 4 out of 10. Patient denies any new falls or injuries. Patient does state that his vacuum bottle assembler has stated that they are going to stop providing his tramadol. He does present today to see if this is something that we can take over. Patient does have a longstanding history of hemophilia a. Patient was in the process of proceeding forward with the spinal cord stimulator trial however at this time he still is up in the air whether or not he would like to proceed forward with this option. Patient states that he has had some people who stated that even the trial left some low back pain once the leads were removed. 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 Patient does have chronic pain in his ankles and knees. His Tanvir has been reviewed and is appropriate. Review of Systems: General: No recent weight changes, no fever, no sleep disturbances Respiratory: No cough, no shortness of air, no recurring pulmonary infections Cardiovascular/peripheral vascular: No chest pain, no palpitations, no edema, no shortness of breath Gastrointestinal: No new onset incontinence, normal bowel movements reported Genitourinary: No new onset incontinence Musculoskeletal: Bilateral ankle pain Psychiatric: [Normal mood/affect] Neurological: [Denies weakness in extremities], [denies balance issues] Pain at rest (0-10 scale): 4 Objective Objective:: Physical Exam: General: Alert and oriented x3, no acute distress, pleasant and cooperative Lungs: Respirations even and unlabored, symmetrical chest expansion Eyes: PERRL Musculoskeletal: Flexion and extension of bilateral ankles somewhat guarded secondary to pain Neurological: Speech clear, no gross sensory deficit Has patient had previous pain injection?: No Conservative treatment options previously tried: Home exercise plan Length of treatment: Longer than 12 weeks Meds Home Medications and Allergies Home Medications ?Medication ?Instructions ?Recorded ?Confirmed ?Type antihemophil FVIII,full length 1 unit IV DIRECTED HEMOPHILIA 11/26/17 09/15/24 History 3,000 (+/-) unit IV solution 28 days ##42,432 tramadol 50 mg tablet 50 mg PO BID Pain 10 days ##40 11/26/17 09/15/24 History omeprazole 40 mg capsule,delayed 40 mg PO DAILY #30 caps 05/06/24 09/15/24 Rx release New Prescriptions to Start Prescriptions: Allergies Allergy/AdvReac Type Severity Reaction Status Date / Time No Known Allergies Allergy Verified 06/01/24 13:04 Assessment and Plan *Assessment and plan (1) Hemophilia A: Status: Acute Category: Medical Code(s): D66 - Hereditary factor VIII deficiency (2) Bilateral ankle pain: Status: Acute Category: Medical Code(s): M25.571 - Pain in right ankle and joints of right foot; M25.572 - Pain in left ankle and joints of left foot (3) Right knee pain: Status: Acute Qualifiers: Chronicity: chronic Qualified Code(s): M25.561 - Pain in right knee; G89.29 - Other chronic pain Category: Medical Code(s): M25.561 - Pain in right knee Plan I did discuss at length with the patient's that it is in our computer system we only have x-ray imaging of his ankles and there are no acute findings. Patient was counseled that unfortunately there is no guarantee we would take over the tramadol prescription. Patient was counseled that I will be speaking with Dr. Chiu regarding options. I will order MRI of his bilateral ankles without contra st. Patient was counseled that if we only get approval for 1 ankle at a time we will do the left side first as he states this is the worst joint. Patient was counseled that we can send in diclofenac 75 mg twice daily to try with a 2-week dose. Patient denies having tried this medication in the past. He states that he has been on Celebrex and did not have any adverse effects however did not nicolasa lly notice much improvement. We did also discuss about possible muscle relaxers however he states that the FAA is very specific on a lot of medications. I have discussed with the patient to please if he can drop off a list of medications that are approved with the FAA that I can review them and see if there is anything additional we can prescribe. Patient will be given a tentative 1 month follow-up. Patient has been instructed to contact the clinic with any concerns before the next appointment. Dr. Chiu has reviewed this note and agrees with this plan of care. This note was dictated using voice recognition software and make contain errors or omissions. All injections are used with Lidocaine, Bupivacaine and Depo Medrol. Occasionally urine drug screen is needed to verify patient's compliance with our office pain contract. This is ordered based off specific treatments related to chronic pain with the potential to abuse certain medications.
== END 2024-09-15 23:59 | disposition home or self-care (01) ==
PROVIDERS: PCP Family Medicine; Visit Provider Nurse Practitioner Family
DX: D66 Hereditary factor VIII deficiency (principal); M25.571 Pain in right ankle and joints of right foot; M25.572 Pain in left ankle and joints of left foot; M25.561 Pain in right knee; G89.29 Other chronic pain
CPT/HCPCS: 99212; G0463

== ENCOUNTER 2025-04-07 10:29 | Outpatient (CLI) | payer BC, SELFPAY ==
--- OUTSIDE RECORDS SUMMARY | 2025-04-07 10:43 | XMS_ITS | Clinical Summary ---
Author Organization [facility] Address [address] [place] [id number] Care Team Providers Care Director Of Grants Name Role Phone Mraio Arzate MD Primary Care Provider [phone] Source Comments This information has been disclosed to you from confidential records protectedfrom disclosure by state law. You shall make no further disclosure of thisinformation without the specific, written, and informed release of theindividual to whom it pertains, or as otherwise permitted by law. A generalauthorization for the release of medical or other information is not sufficientfor the purposes of therelease of HIV test results or diagnoses. [id number] Allergies No known active allergies Medications KOGENATE FS 2,000 (+/-) unit SolR 08/19/2012 Act manolo traMADol (ULTRAM) 50 mg tablet 10/15/2012 Active lidocaine-prilocai ne (EMLA) cream 10/23/2012 Act manolo Social History Tobacco Use Types Packs/Day Years Used Date Smoking Tobacco: Never Alcohol Use Standard Drinks/Week Comments Yes 0 (1 standard drink = 0.6 oz pur e alcohol) Sex and Gender Information Value Date Recorded Sex Assigned at Not on file Legal Sex Male 10:14 PM EST Gender Identity Not on file Sexual Orientation Not on file Last Filed Vital Signs Vital Sign Reading Time Taken Comments Blood Pressure 164/89 11/11/2012 8:11 AM EDT Pulse 78 11/11/2012 8:11 AM EDT Temperature - - Respiratory Rate 14 11/11/2012 8:11 AM EDT Oxygen Saturation - - Inhaled Oxygen Concentration - - Weight 79.4 kg (175 lb) 11/11/2012 8:11 AM EDT Height 180.3 cm (5' 11 ) 11/11/2012 8:11 AM EDT Body Mass Index 24.41 11/11/2012 8:11 AM EDT Plan of Treatment Not on file Insurance [employer] Care Teams Director Of Grants Relationship Specialty Start Date End Date Mario Arzate MD [address] [place] [place] [id number] PCP - General Family Medicine 07/31/22
[2025-04-07 10:53] LABS: Hematocrit 44.8 % (42.0-52.0); Hemoglobin 14.7 g/dL (14.1-18.0); Immature Granulocytes % 0.2 %; Mean Corpuscular HGB Conc 32.8 g/dL (31.8-35.4); Mean Corpuscular Hemoglobin 26.9 pg (27.0-31.2); Mean Corpuscular Volume 81.9 fl (80-94); Nucleated Red Blood Cells % 0 %; Platelet Count 303 K/mm3 (142-424); Red Blood Count 5.47 M/mm3 (4.60-6.20); Red Cell Distribution Width-SD 42.3 fL; White Blood Count 4.4 K/mm3 (4.8-10.8)
[2025-04-07 11:00] LABS: INR 1.01 (0.9-1.1); Prothrombin Time 11.2 seconds (10.1-12.5)
[2025-04-07 11:14] LABS: Albumin Level 4.3 g/dl (3.5-5.0); Chloride 101 mmol/L (98-107); Potassium 4.9 mmoL/L (3.5-5.1); Sodium 137 mmol/L (136-145)
[2025-04-07 11:17] LABS: Alanine Aminotransferase 38 U/L (12-78); Albumin/Globulin Ratio 1.2 (1.1-1.8); Alkaline Phosphatase 73 U/L (38-126); Anion Gap 12.9 mEq/L (5-15); Aspartate Amino Transferase 36 U/L (17-59); Bilirubin,Total 0.8 mg/dl (0.2-1.3); Blood Urea Nitrogen 13 mg/dl (9-20); Calcium 8.7 mg/dl (8.4-10.2); Carbon Dioxide 28 mmol/L (22.0-30.0); Creatinine,Serum 1.10 mg/dl (0.66-1.25); Estimated Glomerular Filt Rate 71 ml/min (>60); GFR (African American) 86 ML/MIN (>60); Globulin 3.5 g/dL (1.3-3.2); Glucose 88 mg/dl (74-100); Iron 74 ug/dL (49-181); Total Protein,Serum 7.8 g/dl (6.3-8.2)
[2025-04-07 11:27] LABS: Total Iron Binding Capacity 459 ug/dL (261-462)
[2025-04-07 11:50] LABS: Ferritin 12.9 ng/ml (17.9-464)
== END 2025-04-07 23:59 | disposition home or self-care (01) ==
LOC: LAB 10:30
PROVIDERS: PCP Family Medicine; Visit Provider Internal Medicine Medical Oncology
DX: D66 Hereditary factor VIII deficiency (principal); Z86.19 Personal history of other infectious and parasitic diseases
CPT/HCPCS: 36415; 80053; 82728; 83540; 83550; 85025; 85610